=== PATIENT | male | born 1950 | race Two or more races ===

== ENCOUNTER 2017-05-22 13:55 | Emergency (ER) | payer MEDICARE, MEDICAID ==
[~2017-05-22] VITALS: Ht 165.1 cm; Wt 75.3 kg
[2017-05-22 14:35] VITALS: BP 131/68
--- NOTE | 2017-05-22 14:54 | Emergency Room Report ---
History of Present Illness General Chief Complaint: Abnormal Labs Source: Patient Present Illness HPI Patient is a 67-year-old male sent in by primary care physician after abnormal liver function tests. Patient was noted to have elevations of his alkaline phosphatase as well as transaminases. The patient denies any pain. He reports having some weight loss. He denies any shortness of breath or chest pain. He had no other complaints currently. Allergies: Coded Allergies: No Known Allergies (Unverified , 05/22/17) Patient History Past Medical History: see triage record Reviewed Nursing Documentation: PMH: Agreed, PSxH: Agreed Nursing Documentation-PMH Past Medical History: No History, Except For Hx Hypertension: Yes Hx Diabetes: Yes Review of Systems All Other Systems: negative except mentioned in HPI Physical Exam Vital Signs Date Time Temp Pulse Resp B/P (MAP) Pulse Ox O2 Delivery O2 Flow Rate FiO2 05/22/17 14:02 97.7 64 19 143/73 96 Room Air Sp02 EP Interpretation: reviewed, normal General Appearance: normal inspection, well appearing, no apparent distress, alert, GCS 15, non-toxic Head: atraumatic Eyes: bilateral eye scleral icterus ENT: normal ENT inspection, hearing grossly normal, normal voice Neck: normal inspection, full range of motion, supple, no bony tend Respiratory: normal inspection, lungs clear, normal breath sounds, no respiratory distress, no retraction, no wheezing Cardiovascular #1: regular rate, rhythm, no edema Gastrointestinal: normal inspection, normal bowel sounds, non tender, soft, no guarding, no hernia Genitourinary: no CVA tenderness Musculoskeletal: normal inspection, back normal, normal range of motion Neurologic: normal inspection, alert, oriented x3, responsive, 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 Differential diagnosis included was not limited to obstructive jaundice, cholestasis, pancreatitis among others.Because of complexity of patient's case laboratory testing and imaging studies were ordered.Laboratory testing showed evidence of a continued elevation of the patient's liver function tests. The patient noted have markedly bilirubin elevation. A CT abdomen pelvis read by radiology showed dilated intrahepatic extra hepatic bile duct. The pancreas was noted to be enlarged without definite mass. Patient was discussed with Dr. Bianca hill for further evaluation of obstructive jaundice consistent with possible pancreatic head mass Labs Test 05/22/17 14:55 White Blood Count 3.6 K/UL (4.8-10.8) Red Blood Count 3.93 M/UL (4.70-6.10) Hemoglobin 12.3 G/DL (14.2-18.0) Hematocrit 36.9 % (42.0-52.0) Mean Corpuscular Volume 94 FL (80-99) Mean Corpuscular Hemoglobin 31.1 PG (27.0-31.0) Mean Corpuscular Hemoglobin Concent 33.2 G/DL (32.0-36.0) Red Cell Distribution Width 12.9 % (11.6-14.8) Platelet Count 156 K/UL (150-450) Mean Platelet Volume 12.3 FL (6.5-10.1) Neutrophils (%) (Auto) 63.6 % (45.0-75.0) Lymphocytes (%) (Auto) 20.3 % (20.0-45.0) Monocytes (%) (Auto) 9.3 % (1.0-10.0) Eosinophils (%) (Auto) 4.7 % (0.0-3.0) Basophils (%) (Auto) 2.1 % (0.0-2.0) Prothrombin Time 10.2 SEC (9.30-11.50) Prothromb Time International Ratio 1.0 (0.9-1.1) Activated Partial Thromboplast Time 26 SEC (23-33) Urine Color Brown Urine Appearance Slightly cloudy Urine pH 5 (4.5-8.0) Urine Specific [place] 1.025 (1.005-1.035) Urine Protein 1+ (NEGATIVE) Urine Glucose (UA) Negative (NEGATIVE) Urine Ketones 1+ (NEGATIVE) Urine Occult Blood 1+ (NEGATIVE) Urine Nitrite Negative (NEGATIVE) Urine Bilirubin 2+ (NEGATIVE) Urine Ictotest Positive Urine Urobilinogen 4 MG/DL (0.0-1.0) Urine Leukocyte Esterase 1+ (NEGATIVE) Urine RBC 0-2 /HPF (0 - 0) Urine WBC 2-4 /HPF (0 - 0) Urine Squamous Epithelial Cells None /LPF (NONE/OCC) Urine Bacteria Moderate /HPF (NONE) Sodium Level 139 MMOL/L (136-145) Potassium Level 3.9 MMOL/L (3.5-5.1) Chloride Level 102 MMOL/L (98-107) Carbon Dioxide Level 30 MMOL/L (21-32) Anion Gap 8 mmol/L (5-15) Blood Urea Nitrogen 13 mg/dL (7-18) Creatinine 0.9 MG/DL (0.55-1.30) Estimat Glomerular Filtration Rate > 60 mL/min (>60) Glucose Level 231 MG/DL (74-106) Calcium Level 9.5 MG/DL (8.5-10.1) Total Bilirubin 3.0 MG/DL (0.2-1.0) Direct Bilirubin 2.3 MG/DL (0.0-0.3) Aspartate Amino Transf (AST/SGOT) 206 U/L (15-37) Alanine Aminotransferase (ALT/SGPT) 546 U/L (12-78) Alkaline Phosphatase 338 U/L (46-116) Total Protein 7.6 G/DL (6.4-8.2) Albumin 3.3 G/DL (3.4-5.0) Globulin 4.3 g/dL Albumin/Globulin Ratio 0.8 (1.0-2.7) Lipase 88 U/L (73-393) Last Vital Signs Date Time Temp Pulse Resp B/P (MAP) Pulse Ox O2 Delivery O2 Flow Rate FiO2 05/22/17 14:02 97.7 64 19 143/73 96 Room Air Status: unchanged Disposition: XFER SHT-TRM HOSP Condition: Stable Referrals: NON PHYSICIAN (PCP) [place] May 22, 2017 14:54
[2017-05-22 15:22] LABS: APPEARANCE,URINE SLIGHTLY CLOUDY; KETONES,URINE 1+ (NEGATIVE); LEUKOCYTE ESTERASE ,URINE 1+ (NEGATIVE); NITRITE,URINE NEGATIVE (NEGATIVE); PH,URINE 5 (4.5-8.0); PROTEIN,URINE 1+ (NEGATIVE); UROBILINOGEN,URINE 4 MG/DL (0.0-1.0)
[2017-05-22 15:26] LABS: BASOPHILS % (AUTO) 2.1 % (0.0-2.0); EOSINOPHILS % (AUTO) 4.7 % (0.0-3.0); LYMPHOCYTES % (AUTO) 20.3 % (20.0-45.0); MEAN CORPUSCULAR HEMOGLOBIN 31.1 PG (27.0-31.0); MEAN CORPUSCULAR HGB CONC 33.2 G/DL (32.0-36.0); MEAN CORPUSCULAR VOLUME 94 FL (80-99); MEAN PLATELET VOLUME 12.3 FL (6.5-10.1); MONOCYTES % (AUTO) 9.3 % (1.0-10.0); NEUTROPHILS % (AUTO) 63.6 % (45.0-75.0); PLATELET COUNT 156 K/UL (150-450); RED BLOOD COUNT 3.93 M/UL (4.70-6.10); RED CELL DISTRIBUTION WIDTH 12.9 % (11.6-14.8); WHITE BLOOD COUNT 3.6 K/UL (4.8-10.8)
[2017-05-22 15:34] LABS: BACTERIA,URINE MODERATE /HPF; ICTOTEST POSITIVE; RBC,URINE 0-2 /HPF (0 - 0)
[2017-05-22 15:36] LABS: PROTHROMBIN TIME 10.2 SEC (9.30-11.50)
[2017-05-22 15:40] LABS: ANION GAP 8 mmol/L (5-15); CALCIUM 9.5 MG/DL (8.5-10.1); CARBON DIOXIDE 30 MMOL/L (21-32); CHLORIDE 102 MMOL/L (98-107); CREATININE 0.9 MG/DL (0.55-1.30); GLOMERULAR FILTRATION RATE > 60 mL/min (>60); POTASSIUM 3.9 MMOL/L (3.5-5.1); SODIUM 139 MMOL/L (136-145)
[2017-05-22 15:51] LABS: ALANINE AMINOTRANSFERASE 546 U/L (12-78); ALBUMIN/GLOBULIN RATIO 0.8 (1.0-2.7); ASPARTATE AMINO TRANSFERASE 206 U/L (15-37); LIPASE 88 U/L (73-393); TOTAL PROTEIN 7.6 G/DL (6.4-8.2)
[2017-05-22 15:58] LABS: BILIRUBIN,DIRECT 2.3 MG/DL (0.0-0.3)
--- NOTE | 2017-05-22 17:00 | Diagnostic Imaging Report ---
Clinical Indication: Abnormal liver function tests and weight loss Technique: No oral contrast utilized, per emergency room physician request IV administration nonionic contrast. Venous phase spiral acquisition obtained through the abdomen and pelvis. Multiplanar reconstructions were generated. Total dose length product 852 mGycm. CTDIvol(s) 13 and 14 mGy. Dose reduction achieved using automated exposure control Comparison: None Findings: The appendix is normal. There is a very questionable focus of slight thickening of the distal sigmoid wall questionable very slight infiltration of the perisigmoid fat. No evidence of diverticulosis or diverticulitis. No small bowel distention. No free or loculated intraperitoneal air or fluid. The distal esophagus, stomach, duodenum are unremarkable. The gallbladder is distended but there is no wall thickening. The common hepatic duct and upstream common bile duct is dilated, measuring up to 11 mm in diameter, although the downstream common bile duct is normal in caliber. There is also mild dilatation of the intrahepatic ducts diffusely. The pancreas is diffusely prominent, with slight indistinctness of the margins. However, a discrete mass is not definitely visualized. No ductal stones are demonstrated. The liver itself is unremarkable. The spleen, adrenals are unremarkable. The right kidney is unremarkable. The left kidney demonstrates multiple subcentimeter low-attenuation lesions which are too small to characterize. No renal or ureteral calculi, hydronephrosis, or hydroureter demonstrated. The prostate is mildly prominent, contains calcifications. The bladder is unremarkable. No pelvic mass or adenopathy other than possible colonic abnormality. The bones demonstrate degenerative spondylosis changes. There is grade 1-2 spondylolisthesis of L5 on S1, but no associated pars defect. The included lung bases demonstrate posterior dependent atelectatic changes. The heart is borderline enlarged. Impression: Mild extrahepatic and central and peripheral intrahepatic biliary ductal dilatation. No definite obstructing stone or mass is demonstrated. However, the pancreas is overall diffusely somewhat prominent with relatively featureless and indistinct margins. Therefore, the possibility of an occult ectatic head mass should be considered, with consideration for endoscopic ultrasound and possible ERCP Distended gallbladder but no CT evidence of gallstones. Equivocal slightly focally thickened distal sigmoid colon with very slight perisigmoid fat infiltration. Suspect just artifact of focal underdistention, but consideration should be given to endoscopy Left renal subcentimeter low-attenuation lesions, too small to characterize, most likely benign simple cysts. No further followup necessary Borderline cardiomegaly Other findings as noted, including degenerative spondylosis, L5 on S1 spondylolisthesis without pars defect, dependent posterior pulmonary atelectasis Findings discussed by phone with Dr. Robins in the emergency room at the time of interpretation The CT scanner at [facility] is accredited by the [employer] and the scans are performed using protocols designed to limit radiation exposure to as low as reasonably achievable to attain images of sufficient resolution adequate for diagnostic evaluation.
[2017-05-22 18:50] VITALS: BP 139/70
== END 2017-05-22 18:50 | disposition short-term general hospital (02) ==
LOC: EMR 14:35
DX: K83.1 Obstruction of bile duct (principal); I10 Essential (primary) hypertension; E11.9 Type 2 diabetes mellitus without complications
CPT/HCPCS: 36415; 74177; 80053; 81003; 82248; 82962; 83690; 85025; 85610; 85730; 87086; 99285; Q9967